=== PATIENT | female | born 1945 | race Caucasian/White ===

== ENCOUNTER 2020-01-01 13:18 | Emergency (ER) | payer MEDICARE, BC ==
[~2020-01-01] VITALS: Ht 162.6 cm; Wt 82.0 kg
[~2020-01-01 13:18] MED LIST: LISI-222 PO; LOP25T PO; MULT-1085 PO
[2020-01-01 13:41] VITALS: BP 144/44
[2020-01-01] MEDS ORDERED: TAM75C PO (14:22)
[2020-01-01] MEDS ORDERED: AZIT-63 PO (14:22)
[2020-01-01] MEDS ORDERED: ALBU8.5H8 IH (14:22)
[2020-01-01] MEDS ORDERED: ONDA4TAB6 PO (14:22)
[2020-01-01] MEDS ORDERED: PRED20TA PO (14:22)
== END 2020-01-01 14:52 | disposition home or self-care (01) ==
LOC: ER 13:19
DX: J40 Bronchitis, not specified as acute or chronic (principal); I50.9 Heart failure, unspecified; I11.0 Hypertensive heart disease with heart failure; M81.0 Age-related osteoporosis without current pathological fracture; Z98.890 Other specified postprocedural states; Z79.2 Long term (current) use of antibiotics; Z79.899 Other long term (current) drug therapy
CPT/HCPCS: 71046; 99283

== ENCOUNTER 2021-05-17 08:01 | Emergency (ER) | payer MEDICARE, BC ==
[~2021-05-17] VITALS: Ht 160 cm; Wt 81.8 kg
[~2021-05-17 08:01] MED LIST changes: +ALBU8.5H17 IH; +ONDA4TAB6 PO
[2021-05-17 08:14] VITALS: BP 203/63
--- NOTE | 2021-05-17 08:40 | NUR ---
dr gaona at bedside.
[2021-05-17] MEDS ORDERED: bacitracin 15gm ointment TP ONE (09:10)
== END 2021-05-17 09:27 | disposition home or self-care (01) ==
LOC: ER 08:02
DX: S50.11XA Contusion of right forearm, initial encounter (principal); S50.811A Abrasion of right forearm, initial encounter; I11.0 Hypertensive heart disease with heart failure; I50.9 Heart failure, unspecified; E21.3 Hyperparathyroidism, unspecified; Z85.9 Personal history of malignant neoplasm, unspecified; Z98.890 Other specified postprocedural states; Z79.899 Other long term (current) drug therapy; W18.30XA Fall on same level, unspecified, initial encounter; Y93.89 Activity, other specified; Y92.89 Other specified places as the place of occurrence of the external cause; Y99.8 Other external cause status
CPT/HCPCS: 73030; 73090; 99284

== ENCOUNTER 2021-12-26 09:12 | Emergency (ER) | payer MEDICARE, BC ==
[~2021-12-26] VITALS: Ht 160 cm; Wt 77.3 kg
[2021-12-26 09:45] VITALS: BP 177/43
== END 2021-12-26 09:52 | disposition home or self-care (01) ==
LOC: ER 09:13
DX: J02.9 Acute pharyngitis, unspecified (principal); R06.02 Shortness of breath; R53.83 Other fatigue; I11.0 Hypertensive heart disease with heart failure; I50.9 Heart failure, unspecified; E21.3 Hyperparathyroidism, unspecified; M81.0 Age-related osteoporosis without current pathological fracture; Z85.9 Personal history of malignant neoplasm, unspecified; Z86.16 Personal history of COVID-19; Z79.899 Other long term (current) drug therapy
CPT/HCPCS: 99281

== ENCOUNTER 2023-12-12 12:38 | Inpatient (IN) | payer MEDICARE, BC ==
[~2023-12-12] VITALS: Ht 158.8 cm; Wt 79.2 kg
[2023-12-12] VITALS (7 sets, daily range): BP systolic 120–169; BP diastolic 57–74; PULSE 68–105; RESP 16–18; TEMP 97.4–97.9; O2SAT 95–97
[~2023-12-12 12:38] MED LIST changes: -ALBU8.5H17 IH; +AMIO200T67 PO; +AMLO5TAB16 PO; +APIX5TAB3 PO; +CARSR60C PO; +CIPR-259 PO; +DULO30CA52 PO; +EZET10TA48 PO; -LISI-222 PO; -LOP25T PO; +LOSA1TAB41 PO; +METO-411 PO; -MULT-1085 PO; +OMEG-79 PO; +OMEP20CA16 PO; -ONDA4TAB6 PO; +SERT25TA PO
[2023-12-12] MEDS ORDERED: ondansetron/PF 4mg/2ml inj IV PRN (14:40)
[2023-12-12] MEDS ORDERED: ondansetron 4mg rapidly disintigrating tab PO PRN (14:40)
[2023-12-12] MEDS ORDERED: HYDROcodone/acetaminophen 10/325mg tab PO PRN (14:40)
[2023-12-12] MEDS ORDERED: mag hydrox/Alum hydrox/simeth 30ml oral suspension PO PRN (14:40)
[2023-12-12] MEDS ORDERED: magnesium 4gm in 100ml NS 100 ML IV PRN (14:40)
[2023-12-12] MEDS ORDERED: morphine 2 MG/ML inj. syringe IV PRN ×2 (14:40)
[2023-12-12] MEDS ORDERED: magnesium hydroxide 30ml (MOM) UD suspension PO PRN (14:40)
[2023-12-12] MEDS ORDERED: potassium Cl 40MEQ/1/2NS 520ml 520 ML IV PRN (14:40)
[2023-12-12] MEDS ORDERED: magnesium 2GM in 50ml NS 50 ML IV PRN (14:40)
[2023-12-12] MEDS ORDERED: bisacodyl 10mg suppository rectal RC PRN (14:40)
[2023-12-12] MEDS ORDERED: magnesium Cl slow-release 64mg tablet PO PRN (14:40)
[2023-12-12] MEDS ORDERED: acetaminophen 325mg tablet PO PRN (14:40)
[2023-12-12 15:13] LABS: BASOPHILS # (AUTO) 0.1 X10'3 (0-0.2); BASOPHILS % (AUTO) 0.7 % (0-1); EOSINOPHILS % (AUTO) 0.1 % (0-6); HEMATOCRIT 27.4 % (35.0-45.0); HEMOGLOBIN 9.6 g/dl (12.0-16.0); LYMPHOCYTES # (AUTO) 0.8 X10'3 (1.1-4.8); LYMPHOCYTES % (AUTO) 6.2 % (21-51); MEAN CORPUSCULAR HEMOGLOBIN 31.9 PG (27.0-31.0); MEAN CORPUSCULAR VOLUME 91.2 FL (78-98); MEAN PLATELET VOLUME 6.1 FL (7.4-10.4); MONOCYTES % (AUTO) 7.8 % (2-12); NEUTROPHILS % (AUTO) 85.2 % (42-75); PLATELET COUNT 293 X10'3 (140-440); RED CELL DISTRIBUTION WIDTH 12.7 % (11.5-14.5); WHITE BLOOD COUNT 12.9 X10'3 (4.5-11.0)
[2023-12-12] MEDS ORDERED: GABA-530 PO (15:21)
[2023-12-12 15:24] LABS: APTT 35 SECONDS (22-32); INR 1.1 INR; PROTHROMBIN TIME 11.3 SECONDS (9.0-12.0)
[2023-12-12 15:25] LABS: ALANINE AMINOTRANSFERASE 15 U/L (12-78); ALBUMIN/GLOBULIN RATIO 0.9 (1.1-1.5); ALKALINE PHOSPHATASE 49 IU/L (46-116); ANION GAP 9 (8-16); ASPARTATE AMINO TRANSFERASE 17 U/L (10-37); BILIRUBIN,TOTAL 0.8 MG/DL (0.1-1.0); BLOOD UREA NITROGEN 6 MG/DL (7-18); BUN/CREATININE RATIO 11.8 (10.0-20.0); CHLORIDE 85 MMOL/L (99-107); CREATININE 0.51 MG/DL (0.40-0.90); GLUCOSE 140 MG/DL (70-104); MAGNESIUM 1.6 MG/DL (1.5-2.4); POTASSIUM 3.5 MMOL/L (3.5-5.1); TOTAL CARBON DIOXIDE 26.3 MMOL/L (24-32); TOTAL PROTEIN 6.4 G/DL (6.4-8.2); eGFR > 90 ML/MIN
[2023-12-12 15:32] LABS: OSMOLALITY 246 MOSM/K (280-300)
[2023-12-12 15:38] LABS: CALCIUM 5.8 MG/DL (8.5-10.1); SODIUM 120 MMOL/L (135-145)
[2023-12-12] MEDS ORDERED: ipratropium/albuterol 3ml nebule NEB PRN (16:30)
[2023-12-12] MEDS: normal saline 1000ml 1,000 ML IV SCH (16:40)
[2023-12-12] MEDS: PERFLUTREN PROTEIN-A MICROSPHR (Optison) 0.22 MG/ML 3ML VIAL IV ONE (18:45)
[2023-12-12] MEDS: K and/or MAG REPLACEMENT MC SCH (20:00)
[2023-12-12] MEDS ORDERED: enoxaparin 40mg/0.4ml syringe SQ SCH (20:00)
[2023-12-12] MEDS: ezetimibe 10mg tablet PO SCH (21:25)
[2023-12-12] MEDS: gabapentin 100mg capsule PO SCH (21:25)
[2023-12-12] MEDS: apixaban 5mg tablet PO SCH (21:25)
[2023-12-12] MEDS: CALCIUM GLUC 1gm/50ml NACL,iso 50 ML IV SCH ×2 (21:26→22:30)
[2023-12-13] VITALS (10 sets, daily range): BP systolic 132–146; BP diastolic 50–82; PULSE 62–88; RESP 16–19; TEMP 97.9–98.4; O2SAT 95–98
[2023-12-13 01:07] LABS: BILIRUBIN,URINE NEGATIVE (Neg); CLARITY,URINE CLEAR (Clear); COLOR,URINE STRAW (Yellow); GLUCOSE, URINE NEGATIVE (Neg); KETONES,URINE NEGATIVE (Neg); LEUKOCYTE ESTERASE ,URINE NEGATIVE (Neg); NITRITES, URINE NEGATIVE (Neg); OCCULT BLOOD,URINE MODERATE (Neg); PROTEIN,URINE NEGATIVE (Neg); UROBILINOGEN,URINE 0.2 E.U/dL (0.2-1.0)
[2023-12-13 01:10] LABS: UA COLLECTION TYPE NON-SPECIFIED
[2023-12-13 01:14] LABS: BACTERIA,URINE NONE SEEN /HPF (Neg); SQUAMOUS EPITHELIAL CELL,UR FEW /LPF (FEW); WBC,URINE 0-4 /HPF (0-4)
[2023-12-13 01:15] LABS: MUCUS STRANDS FEW /LPF (Neg); TRANSITIONAL EPI CELLS,URINE FEW /HPF
[2023-12-13 01:22] LABS: ANION GAP 8 (8-16); BLOOD UREA NITROGEN 6 MG/DL (7-18); BUN/CREATININE RATIO 11.1 (10.0-20.0); CALCIUM 6.6 MG/DL (8.5-10.1); CHLORIDE 87 MMOL/L (99-107); CREATININE 0.54 MG/DL (0.40-0.90); GLUCOSE 118 MG/DL (70-104); POTASSIUM 3.2 MMOL/L (3.5-5.1); SODIUM 124 MMOL/L (135-145); TOTAL CARBON DIOXIDE 28.6 MMOL/L (24-32); eCRCL 68 ML/MIN; eGFR > 90 ML/MIN
[2023-12-13 01:22] LABS: OSMOLALITY UA 161 MOSM/K (50-1400)
[2023-12-13 01:32] LABS: SODIUM,URINE RANDOM 26 MEQ/L
[2023-12-13] MEDS: potassium Cl 20 mEq SR tablet PO PRN (01:38)
[2023-12-13] MEDS: magnesium 2GM in 50ml NS 50 ML IV ONE (02:14)
[2023-12-13] MEDS: acetaminophen 325mg tablet PO PRN (05:37)
[2023-12-13 07:35] LABS: BASOPHILS % (AUTO) 0.1 % (0-1); EOSINOPHILS % (AUTO) 0.4 % (0-6); HEMATOCRIT 27.9 % (35.0-45.0); HEMOGLOBIN 9.6 g/dl (12.0-16.0); LYMPHOCYTES # (AUTO) 0.8 X10'3 (1.1-4.8); MEAN CORPUSCULAR HEMOGLOBIN 31.6 PG (27.0-31.0); MEAN CORPUSCULAR HGB CONC 34.4 g/dL (33.0-36.5); MEAN CORPUSCULAR VOLUME 91.9 FL (78-98); MEAN PLATELET VOLUME 6.5 FL (7.4-10.4); MONOCYTES % (AUTO) 10.8 % (2-12); NEUTROPHILS # (AUTO) 7.8 X10'3 (1.8-7.7); NEUTROPHILS % (AUTO) 80.7 % (42-75); PLATELET COUNT 287 X10'3 (140-440); RED BLOOD COUNT 3.04 X10'6 (4.20-5.60); RED CELL DISTRIBUTION WIDTH 12.5 % (11.5-14.5); WHITE BLOOD COUNT 9.7 X10'3 (4.5-11.0)
[2023-12-13 07:48] LABS: ALANINE AMINOTRANSFERASE 13 U/L (12-78); ALBUMIN 2.8 G/DL (3.4-5.0); ALBUMIN/GLOBULIN RATIO 0.8 (1.1-1.5); ALKALINE PHOSPHATASE 50 IU/L (46-116); ANION GAP 4 (8-16); ASPARTATE AMINO TRANSFERASE 16 U/L (10-37); BILIRUBIN,TOTAL 0.8 MG/DL (0.1-1.0); BLOOD UREA NITROGEN 5 MG/DL (7-18); BUN/CREATININE RATIO 8.9 (10.0-20.0); CALCIUM 6.4 MG/DL (8.5-10.1); CHLORIDE 90 MMOL/L (99-107); CREATININE 0.56 MG/DL (0.40-0.90); GLUCOSE 117 MG/DL (70-104); MAGNESIUM 2.4 MG/DL (1.5-2.4); PHOSPHORUS 2.7 MG/DL (2.3-4.5); POTASSIUM 3.4 MMOL/L (3.5-5.1); SODIUM 128 MMOL/L (135-145); TOTAL CARBON DIOXIDE 34.3 MMOL/L (24-32); TOTAL PROTEIN 6.3 G/DL (6.4-8.2); eCRCL 66 ML/MIN; eGFR > 90 ML/MIN
[2023-12-13] MEDS: metoprolol succinate 25mg (24-HOUR) SR. Tablet PO SCH (09:58)
[2023-12-13] MEDS: HYDROchlorothiazide 12.5mg capsule PO SCH (09:59)
[2023-12-13] MEDS: losartan 50mg tablet PO SCH (09:59)
[2023-12-13] MEDS: sertraline 25mg tablet PO SCH (09:59)
[2023-12-13] MEDS: pantoprazole 40mg Tablet.DR PO SCH (09:59)
[2023-12-13] MEDS: amLODIPine 2.5mg tablet PO SCH (10:00)
[2023-12-13 11:20] LABS: ALBUMIN 2.8 G/DL (3.4-5.0); BLOOD UREA NITROGEN 6 MG/DL (7-18); BUN/CREATININE RATIO 7.8 (10.0-20.0); CALCIUM 6.3 MG/DL (8.5-10.1); CHLORIDE 92 MMOL/L (99-107); CREATININE 0.77 MG/DL (0.40-0.90); GLUCOSE 168 MG/DL (70-104); POTASSIUM 3.5 MMOL/L (3.5-5.1); SODIUM 128 MMOL/L (135-145); eCRCL 48 ML/MIN; eGFR 72 ML/MIN
[2023-12-13 11:40] LABS: ANION GAP 9 (8-16); TOTAL CARBON DIOXIDE 26.8 MMOL/L (24-32)
[2023-12-13] MEDS: HYDROcodone/acetaminophen 5mg/325mg tablet PO PRN (13:10)
[2023-12-13] MEDS: CALCIUM GLUC 1gm/50ml NACL,iso 50 ML IV ONE ×2 (15:47→18:00)
[2023-12-13 19:39] LABS: ALBUMIN 2.7 G/DL (3.4-5.0); ANION GAP 8 (8-16); BLOOD UREA NITROGEN 9 MG/DL (7-18); BUN/CREATININE RATIO 11.5 (10.0-20.0); CALCIUM 6.6 MG/DL (8.5-10.1); CHLORIDE 91 MMOL/L (99-107); CREATININE 0.78 MG/DL (0.40-0.90); GLUCOSE 194 MG/DL (70-104); POTASSIUM 3.5 MMOL/L (3.5-5.1); SODIUM 126 MMOL/L (135-145); TOTAL CARBON DIOXIDE 27.2 MMOL/L (24-32); eCRCL 47 ML/MIN; eGFR 71 ML/MIN
[2023-12-14 05:09] LABS: BASOPHILS % (AUTO) 0.3 % (0-1); EOSINOPHILS # (AUTO) 0.2 X10'3 (0-0.9); EOSINOPHILS % (AUTO) 2.2 % (0-6); HEMATOCRIT 23.7 % (35.0-45.0); HEMOGLOBIN 8.2 g/dl (12.0-16.0); LYMPHOCYTES # (AUTO) 0.8 X10'3 (1.1-4.8); LYMPHOCYTES % (AUTO) 9.3 % (21-51); MEAN CORPUSCULAR HEMOGLOBIN 32.4 PG (27.0-31.0); MEAN CORPUSCULAR HGB CONC 34.8 g/dL (33.0-36.5); MEAN CORPUSCULAR VOLUME 93.1 FL (78-98); MEAN PLATELET VOLUME 6.3 FL (7.4-10.4); MONOCYTES % (AUTO) 11.5 % (2-12); NEUTROPHILS # (AUTO) 6.9 X10'3 (1.8-7.7); NEUTROPHILS % (AUTO) 76.7 % (42-75); PLATELET COUNT 280 X10'3 (140-440); RED BLOOD COUNT 2.54 X10'6 (4.20-5.60); WHITE BLOOD COUNT 9.1 X10'3 (4.5-11.0)
[2023-12-14 05:24] LABS: ALBUMIN 2.4 G/DL (3.4-5.0); ANION GAP 7 (8-16); BLOOD UREA NITROGEN 9 MG/DL (7-18); BUN/CREATININE RATIO 14.8 (10.0-20.0); CALCIUM 6.3 MG/DL (8.5-10.1); CHLORIDE 99 MMOL/L (99-107); CREATININE 0.61 MG/DL (0.40-0.90); GLUCOSE 112 MG/DL (70-104); MAGNESIUM 1.7 MG/DL (1.5-2.4); PHOSPHORUS 2.9 MG/DL (2.3-4.5); SODIUM 136 MMOL/L (135-145); TOTAL CARBON DIOXIDE 30.2 MMOL/L (24-32); eCRCL 61 ML/MIN; eGFR > 90 ML/MIN
[2023-12-14] MEDS: potassium Cl 20 mEq SR tablet PO PRN (05:44)
[2023-12-14 06:00] VITALS: BP 155/55; PULSE 73; RESP 18; TEMP 97.5; O2SAT 96
[2023-12-14 08:31] VITALS: PULSE 88; RESP 16; O2SAT 96
[2023-12-14 10:00] VITALS: BP 140/44; PULSE 65; RESP 14; TEMP 98.2; O2SAT 96
[2023-12-14] MEDS: calcium chloride inj. 1,000 MG in NS 100ml IV soln (110ml) IV ONE (10:11)
[2023-12-14] MEDS: potassium Cl 20 mEq SR tablet PO STA (10:52)
[2023-12-14] MEDS ORDERED: LOSA50TA64 PO (12:48)
[2023-12-14] MEDS ORDERED: AMLO5TAB16 PO (12:49)
[2023-12-14] MEDS ORDERED: POTA-208 PO (12:50)
[2023-12-14 13:09] LABS: ALBUMIN 2.6 G/DL (3.4-5.0); ANION GAP 6 (8-16); BLOOD UREA NITROGEN 8 MG/DL (7-18); BUN/CREATININE RATIO 14.8 (10.0-20.0); CHLORIDE 97 MMOL/L (99-107); CREATININE 0.54 MG/DL (0.40-0.90); GLUCOSE 96 MG/DL (70-104); POTASSIUM 3.9 MMOL/L (3.5-5.1); SODIUM 133 MMOL/L (135-145); TOTAL CARBON DIOXIDE 29.7 MMOL/L (24-32); eCRCL 68 ML/MIN; eGFR > 90 ML/MIN
[2023-12-14 13:15] LABS: CALCIUM 7.8 MG/DL (8.5-10.1)
[2023-12-14] MEDS ORDERED: SODI1TAB2 PO (17:28)
[2023-12-14] MEDS ORDERED: CALC-723 PO (23:44)
== END 2023-12-14 16:10 | disposition home health service (06) | DRG 640 ==
LOC: ORTHO 4S 12:40
PROVIDERS: ADMIT Orthopaedic Surgery; ATTEND Orthopaedic Surgery
DX: E87.1 Hypo-osmolality and hyponatremia (principal); E43 Unspecified severe protein-calorie malnutrition; Z96.652 Presence of left artificial knee joint; E66.9 Obesity, unspecified; E87.6 Hypokalemia; E83.51 Hypocalcemia; D64.9 Anemia, unspecified; E86.1 Hypovolemia; I11.0 Hypertensive heart disease with heart failure; I50.9 Heart failure, unspecified; I35.0 Nonrheumatic aortic (valve) stenosis; R25.2 Cramp and spasm; E78.5 Hyperlipidemia, unspecified; I48.91 Unspecified atrial fibrillation; Z79.899 Other long term (current) drug therapy; Z87.891 Personal history of nicotine dependence; Z68.31 Body mass index [BMI] 31.0-31.9, adult
CPT/HCPCS: 36415; 71045; 80048; 80053; 81001; 83735; 83930; 83935; 84100; 84300; 85025; 85610; 85730; 87081; 93005; 93306; 94760; 97116; 97161; 97530; 99285; G0378; J0610; J3475; J3490; J7030

== ENCOUNTER 2023-12-24 11:56 | Day surgery (SDC) | payer MEDICARE, BC ==
[2023-12-21 10:52] LABS: BASOPHILS # (AUTO) 0.1 X10'3 (0-0.2); EOSINOPHILS # (AUTO) 0.4 X10'3 (0-0.9); HEMOGLOBIN 8.8 g/dl (12.0-16.0); LYMPHOCYTES # (AUTO) 1.2 X10'3 (1.1-4.8); WHITE BLOOD COUNT 10.5 X10'3 (4.5-11.0)
[2023-12-21 10:53] LABS: BASOPHILS % (AUTO) 0.6 % (0-1); HEMATOCRIT 26.2 % (35.0-45.0); LYMPHOCYTES % (AUTO) 11.2 % (21-51); MEAN CORPUSCULAR HEMOGLOBIN 31.3 PG (27.0-31.0); MEAN CORPUSCULAR HGB CONC 33.6 g/dL (33.0-36.5); MEAN CORPUSCULAR VOLUME 93.1 FL (78-98); MEAN PLATELET VOLUME 5.5 FL (7.4-10.4); MONOCYTES % (AUTO) 9.4 % (2-12); NEUTROPHILS # (AUTO) 7.8 X10'3 (1.8-7.7); NEUTROPHILS % (AUTO) 74.8 % (42-75); PLATELET COUNT 584 X10'3 (140-440); RED BLOOD COUNT 2.82 X10'6 (4.20-5.60); RED CELL DISTRIBUTION WIDTH 13.3 % (11.5-14.5)
[2023-12-21 10:57] LABS: INR 1.1 INR
[2023-12-21 11:03] LABS: APTT 39 SECONDS (22-32); PROTHROMBIN TIME 11.7 SECONDS (9.0-12.0)
[2023-12-21 11:13] LABS: ALBUMIN 2.7 G/DL (3.4-5.0); ANION GAP 8 (8-16); BLOOD UREA NITROGEN 10 MG/DL (7-18); CALCIUM 6.3 MG/DL (8.5-10.1); CHLORIDE 98 MMOL/L (99-107); CHOL/HDL RATIO 3.5 (0.00-4.99); CHOLESTEROL 152 MG/DL (0-200); CREATININE 0.77 MG/DL (0.40-0.90); GLUCOSE 104 MG/DL (70-104); HDL CHOLESTEROL 44 MG/DL (35-60); LDL CHOLESTEROL 86 MG/DL (50-100); POTASSIUM 4.1 MMOL/L (3.5-5.1); SODIUM 135 MMOL/L (135-145); TOTAL CARBON DIOXIDE 28.8 MMOL/L (24-32); TRIGLYCERIDES 83 MG/DL (20-135); eGFR 72 ML/MIN
[~2023-12-24] VITALS: Ht 158.8 cm; Wt 79.0 kg
[2023-12-24] VITALS (10 sets, daily range): BP systolic 109–145; BP diastolic 39–65; PULSE 68–73; RESP 12–20; TEMP 97.4; O2SAT 94–98
[~2023-12-24 11:56] MED LIST changes: -AMIO200T67 PO; +CALC-723 PO; -CARSR60C PO; -CIPR-259 PO; -DULO30CA52 PO; +GABA-530 PO; -LOSA1TAB41 PO; +LOSA50TA64 PO; -OMEG-79 PO; +POTA-208 PO; +SODI1TAB2 PO
[2023-12-24] MEDS ORDERED: DENO60DI SUBCUT (12:22)
[2023-12-24] MEDS ORDERED: APIX5TAB3 PO (12:24)
[2023-12-24] MEDS ORDERED: AMLO2.5T5 PO (12:25)
[2023-12-24] MEDS ORDERED: LOSA100T58 PO (12:26)
[2023-12-24] MEDS: LORazepam 0.5 MG tablet PO PRN (13:00)
[2023-12-24] MEDS: diphenhydrAMINE 25mg capsule PO PRN (13:00)
[2023-12-24] MEDS: normal saline 1,000 ML IV SCH (13:00)
[2023-12-24] MEDS ORDERED: LIDOcaine 1% (10mg/ml) 2ml vial ONE (13:30)
[2023-12-24] MEDS ORDERED: iohexol 350MG/ML 100ml bottle IV ONE (13:31)
[2023-12-24] MEDS ORDERED: heparin 1,000unit/ml 10ml vial 10 ML ONE (13:31)
[2023-12-24] MEDS ORDERED: midazolam 1 mg/ML 2ml injection ONE (13:31)
[2023-12-24] MEDS ORDERED: verapamil 2.5 mg/ml inj IV ONE (13:31)
[2023-12-24] MEDS ORDERED: fentaNYL/PF 50MCG/1 ML 2ML syringe ONE (13:31)
[2023-12-24] MEDS ORDERED: nitroGLYCERIN 500mcg/5mL D5W 5 ML IV ONE (13:32)
[2023-12-24] MEDS ORDERED: LIDOcaine 1% 30ml preserv. free vial ONE (14:25)
[2023-12-24 14:57] LABS: ISTAT HGB ART 8.5 g/dl (12.0-16.0); ISTAT Hct ART 25 %PCV (35-45); ISTAT O2 SATURATION ARTERIAL 93 % (95-98); ISTAT SOURCE ART
[2023-12-25 06:46] LABS: ISTAT HGB MIX 8.5 g/dl (12.0-16.0); ISTAT Hct MIX 25 %PCV (35-45); ISTAT O2 SATURATION MIX VENOUS 61 % (60-80); ISTAT SOURCE VEN
== END 2023-12-24 17:05 | disposition home or self-care (01) ==
LOC: SSTAY O 11:56
PROVIDERS: ATTEND Student in an Organized Health Care Education/Training Program
DX: I08.0 Rheumatic disorders of both mitral and aortic valves (principal); E78.5 Hyperlipidemia, unspecified; E11.9 Type 2 diabetes mellitus without complications; M19.90 Unspecified osteoarthritis, unspecified site; I48.0 Paroxysmal atrial fibrillation; I11.0 Hypertensive heart disease with heart failure; I50.9 Heart failure, unspecified; I27.20 Pulmonary hypertension, unspecified; E66.9 Obesity, unspecified; Z68.31 Body mass index [BMI] 31.0-31.9, adult; Z85.828 Personal history of other malignant neoplasm of skin; Z88.8 Allergy status to other drugs, medicaments and biological substances; Z88.5 Allergy status to narcotic agent; Z79.899 Other long term (current) drug therapy; Z79.01 Long term (current) use of anticoagulants
CPT/HCPCS: 36415; 80048; 80061; 82803; 85014; 85025; 85610; 85730; 93005; 93456; 99152; 99153; J1644; J2250; J3010; J3490; J7030; Q0163; Q9967; A6258; A6402; C1751; C1894

== ENCOUNTER 2024-01-26 17:47 | Inpatient (IN) | payer MEDICARE, BC ==
[~2024-01-26] VITALS: Ht 160 cm; Wt 74.5 kg
[~2024-01-26 17:47] MED LIST changes: +AMLO2.5T5 PO; -AMLO5TAB16 PO; -CALC-723 PO; +DENO60DI SUBCUT; +LOSA100T58 PO; -LOSA50TA64 PO; -POTA-208 PO; -SODI1TAB2 PO
[2024-01-26 18:22] LABS: BASOPHILS % (AUTO) 0.2 % (0-1); EOSINOPHILS % (AUTO) 0 % (0-6); HEMATOCRIT 32.5 % (35.0-45.0); HEMOGLOBIN 10.3 g/dl (12.0-16.0); LYMPHOCYTES # (AUTO) 0.2 X10'3 (1.1-4.8); LYMPHOCYTES % (AUTO) 1.4 % (21-51); MEAN CORPUSCULAR HEMOGLOBIN 27.4 PG (27.0-31.0); MEAN CORPUSCULAR HGB CONC 31.8 g/dL (33.0-36.5); MEAN CORPUSCULAR VOLUME 86.1 FL (78-98); MONOCYTES # (AUTO) 1.1 X10'3 (0-0.9); MONOCYTES % (AUTO) 7.4 % (2-12); PLATELET COUNT 409 X10'3 (140-440); RED BLOOD COUNT 3.77 X10'6 (4.20-5.60); RED CELL DISTRIBUTION WIDTH 15.2 % (11.5-14.5); WHITE BLOOD COUNT 14.3 X10'3 (4.5-11.0)
[2024-01-26 18:26] LABS: ALBUMIN 2.6 G/DL (3.4-5.0); ANION GAP 8 (8-16); BLOOD UREA NITROGEN 12 MG/DL (7-18); BUN/CREATININE RATIO 14.1 (10.0-20.0); CALCIUM 6.3 MG/DL (8.5-10.1); CHLORIDE 95 MMOL/L (99-107); CREATININE 0.85 MG/DL (0.40-0.90); GLUCOSE 144 MG/DL (70-104); POTASSIUM 3.5 MMOL/L (3.5-5.1); SODIUM 131 MMOL/L (135-145); TOTAL CARBON DIOXIDE 27.8 MMOL/L (24-32); eCRCL 44 ML/MIN; eGFR 65 ML/MIN
[2024-01-26] MEDS: acetaminophen 325mg tablet PO ONE (18:32)
[2024-01-26] MEDS: ondansetron/PF 4mg/2ml inj IV ONE (18:37)
[2024-01-26] MEDS: normal saline 1000ML IV soln IV ONE (18:37)
[2024-01-26] MEDS: dexamethasone sod phosphate 10mg/ml inj IV STA (18:37)
[2024-01-26 19:05] LABS: BILIRUBIN,URINE NEGATIVE (Neg); COLOR,URINE YELLOW (Yellow); GLUCOSE, URINE NEGATIVE (Neg); KETONES,URINE NEGATIVE (Neg); LEUKOCYTE ESTERASE ,URINE LARGE (Neg); NITRITES, URINE POSITIVE (Neg); OCCULT BLOOD,URINE LARGE (Neg); PROTEIN,URINE 30 mg/dl (Neg); UROBILINOGEN,URINE 0.2 E.U/dL (0.2-1.0)
[2024-01-26 19:06] LABS: CLARITY,URINE SLIGHTLY CLOUDY (Clear); UA COLLECTION TYPE VOIDED
[2024-01-26 19:16] LABS: BACTERIA,URINE 3+ /HPF (Neg); WBC,URINE TNTC /HPF (0-4)
[2024-01-26 19:17] LABS: RBC,URINE 20-50 /HPF (0-2)
[2024-01-26 19:18] LABS: MUCUS STRANDS NONE SEEN /LPF (Neg); SQUAMOUS EPITHELIAL CELL,UR FEW /LPF (FEW); WBC CLUMPS,URINE MODERATE /HPF (NEGATIVE)
[2024-01-26] MEDS ORDERED: acetaminophen 325mg tablet PO PRN (19:30)
[2024-01-26] MEDS ORDERED: morphine 2 MG/ML inj. syringe IV PRN ×2 (19:30)
[2024-01-26] MEDS ORDERED: magnesium hydroxide 30ml (MOM) UD suspension PO PRN (19:30)
[2024-01-26] MEDS ORDERED: mag hydrox/Alum hydrox/simeth 30ml oral suspension PO PRN (19:30)
[2024-01-26] MEDS: docusate sod 100mg capsule PO SCH (20:00)
[2024-01-26] MEDS: CefTRIAXone/D5W-Rocephin 1gm 50 ML IV SCH (21:03)
[2024-01-27 03:34] LABS: BASOPHILS % (AUTO) 0.1 % (0-1); EOSINOPHILS % (AUTO) 0 % (0-6); HEMATOCRIT 30.6 % (35.0-45.0); HEMOGLOBIN 9.8 g/dl (12.0-16.0); LYMPHOCYTES # (AUTO) 0.5 X10'3 (1.1-4.8); LYMPHOCYTES % (AUTO) 2.5 % (21-51); MEAN CORPUSCULAR HEMOGLOBIN 27.6 PG (27.0-31.0); MEAN CORPUSCULAR HGB CONC 31.9 g/dL (33.0-36.5); MEAN CORPUSCULAR VOLUME 86.5 FL (78-98); MEAN PLATELET VOLUME 6.6 FL (7.4-10.4); MONOCYTES # (AUTO) 0.4 X10'3 (0-0.9); MONOCYTES % (AUTO) 2.3 % (2-12); NEUTROPHILS # (AUTO) 17.2 X10'3 (1.8-7.7); NEUTROPHILS % (AUTO) 95.1 % (42-75); PLATELET COUNT 403 X10'3 (140-440); RED BLOOD COUNT 3.53 X10'6 (4.20-5.60); RED CELL DISTRIBUTION WIDTH 15.2 % (11.5-14.5)
[2024-01-27 03:38] LABS: ALBUMIN 2.7 G/DL (3.4-5.0); ANION GAP 9 (8-16); BLOOD UREA NITROGEN 14 MG/DL (7-18); BUN/CREATININE RATIO 15.6 (10.0-20.0); CALCIUM 6.4 MG/DL (8.5-10.1); CHLORIDE 97 MMOL/L (99-107); GLUCOSE 170 MG/DL (70-104); POTASSIUM 3.8 MMOL/L (3.5-5.1); SODIUM 133 MMOL/L (135-145); eCRCL 42 ML/MIN; eGFR 60 ML/MIN
[2024-01-27] MEDS: acetaminophen 325mg tablet PO PRN (04:57)
[2024-01-27 07:50] VITALS: RESP 16; O2SAT 100
[2024-01-27 10:00] VITALS: BP 128/44; PULSE 85; RESP 16; TEMP 98.2; O2SAT 100
[2024-01-27] MEDS: piperacillin/tazo 4.5gm/100ml 100 ML IV SCH (12:00)
[2024-01-27 18:00] VITALS: BP 150/58; PULSE 79; RESP 18; TEMP 98.2; O2SAT 100
[2024-01-27] MEDS: apixaban 5mg tablet PO SCH (19:23)
[2024-01-27] MEDS: gabapentin 100mg capsule PO SCH (19:23)
[2024-01-27] MEDS: ezetimibe 10mg tablet PO SCH (20:16)
[2024-01-27 22:00] VITALS: BP 162/63; PULSE 84; RESP 16; TEMP 97.9; O2SAT 99
[2024-01-27] MEDS: ondansetron/PF 4mg/2ml inj IV PRN (22:37)
[2024-01-27] MEDS: temazepam 15mg capsule PO PRN (23:37)
[2024-01-28 05:00] VITALS: BP 167/62; PULSE 92; RESP 15; TEMP 98.1; O2SAT 100
[2024-01-28 06:46] LABS: ALBUMIN 2.4 G/DL (3.4-5.0); ANION GAP 6 (8-16); BLOOD UREA NITROGEN 13 MG/DL (7-18); BUN/CREATININE RATIO 14.6 (10.0-20.0); CALCIUM 6.6 MG/DL (8.5-10.1); CHLORIDE 99 MMOL/L (99-107); CREATININE 0.89 MG/DL (0.40-0.90); GLUCOSE 116 MG/DL (70-104); POTASSIUM 3.3 MMOL/L (3.5-5.1); SODIUM 133 MMOL/L (135-145); TOTAL CARBON DIOXIDE 27.8 MMOL/L (24-32); eCRCL 42 ML/MIN; eGFR 61 ML/MIN
[2024-01-28 06:58] LABS: BASOPHILS % (AUTO) 0.1 % (0-1); EOSINOPHILS % (AUTO) 0.1 % (0-6); HEMATOCRIT 27.5 % (35.0-45.0); HEMOGLOBIN 8.8 g/dl (12.0-16.0); LYMPHOCYTES # (AUTO) 0.9 X10'3 (1.1-4.8); LYMPHOCYTES % (AUTO) 6.1 % (21-51); MEAN CORPUSCULAR HEMOGLOBIN 27.5 PG (27.0-31.0); MEAN CORPUSCULAR HGB CONC 32.2 g/dL (33.0-36.5); MEAN CORPUSCULAR VOLUME 85.4 FL (78-98); MEAN PLATELET VOLUME 6.2 FL (7.4-10.4); MONOCYTES # (AUTO) 1.1 X10'3 (0-0.9); NEUTROPHILS # (AUTO) 13.4 X10'3 (1.8-7.7); NEUTROPHILS % (AUTO) 86.7 % (42-75); PLATELET COUNT 408 X10'3 (140-440); RED BLOOD COUNT 3.22 X10'6 (4.20-5.60); RED CELL DISTRIBUTION WIDTH 15.3 % (11.5-14.5); WHITE BLOOD COUNT 15.5 X10'3 (4.5-11.0)
[2024-01-28] MEDS: losartan 50mg tablet PO SCH (07:42)
[2024-01-28] MEDS: sertraline 50mg tablet PO SCH (07:43)
[2024-01-28] MEDS: amLODIPine 5mg tablet PO SCH (07:43)
[2024-01-28] MEDS: pantoprazole 40mg Tablet.DR PO SCH (07:43)
[2024-01-28] MEDS: metoprolol succinate 25mg (24-HOUR) SR. Tablet PO SCH (07:44)
[2024-01-28 08:00] VITALS: BP 167/61; PULSE 90; RESP 16; RESP 18; O2SAT 98
[2024-01-28 10:00] VITALS: BP 120/51; PULSE 83; RESP 18; TEMP 97.5; O2SAT 98
[2024-01-28] MEDS ORDERED: magnesium Cl slow-release 64mg tablet PO PRN (10:15)
[2024-01-28] MEDS ORDERED: magnesium 4gm in 100ml NS 100 ML IV PRN (10:15)
[2024-01-28] MEDS ORDERED: potassium Cl 40MEQ/1/2NS 520ml 520 ML IV PRN (10:15)
[2024-01-28] MEDS ORDERED: magnesium 2GM in 50ml NS 50 ML IV PRN (10:15)
[2024-01-28] MEDS: potassium Cl 20 mEq SR tablet PO PRN (10:30)
[2024-01-28] MEDS: levoFLOXACIN 750MG TABLET PO SCH (12:28)
[2024-01-28 18:00] VITALS: BP 142/52; PULSE 78; RESP 16; TEMP 97.3; O2SAT 98
[2024-01-28 20:00] VITALS: RESP 16; O2SAT 98
[2024-01-28] MEDS: K and/or MAG REPLACEMENT MC SCH (20:04)
[2024-01-28 20:41] LABS: PRO BRAIN NATRIURETIC PEPTIDE 2177 PG/ML (0-450)
[2024-01-28 22:00] VITALS: BP 145/69; PULSE 82; RESP 15; TEMP 97.3; O2SAT 96
[2024-01-29 01:30] VITALS: BP 197/77; PULSE 79
[2024-01-29 01:46] VITALS: BP 207/77; PULSE 77
[2024-01-29 02:46] VITALS: BP 195/75; PULSE 77
[2024-01-29 06:00] VITALS: BP 138/55; PULSE 89; RESP 15; TEMP 98.3; O2SAT 93
[2024-01-29 07:30] VITALS: RESP 18; O2SAT 98
[2024-01-29 07:45] LABS: BASOPHILS # (AUTO) 0.1 X10'3 (0-0.2); BASOPHILS % (AUTO) 0.5 % (0-1); EOSINOPHILS % (AUTO) 0.4 % (0-6); HEMOGLOBIN 9.3 g/dl (12.0-16.0); LYMPHOCYTES % (AUTO) 9.2 % (21-51); MEAN CORPUSCULAR HEMOGLOBIN 27.4 PG (27.0-31.0); MEAN CORPUSCULAR VOLUME 85.4 FL (78-98); MONOCYTES # (AUTO) 1.3 X10'3 (0-0.9); MONOCYTES % (AUTO) 11.8 % (2-12); NEUTROPHILS # (AUTO) 8.3 X10'3 (1.8-7.7); NEUTROPHILS % (AUTO) 78.1 % (42-75); PLATELET COUNT 444 X10'3 (140-440); RED BLOOD COUNT 3.39 X10'6 (4.20-5.60); RED CELL DISTRIBUTION WIDTH 15.3 % (11.5-14.5); WHITE BLOOD COUNT 10.7 X10'3 (4.5-11.0)
[2024-01-29 07:48] LABS: BASOPHILS % (AUTO) 0.4 % (0-1); EOSINOPHILS % (AUTO) 0.4 % (0-6); HEMATOCRIT 28.8 % (35.0-45.0); HEMOGLOBIN 9.3 g/dl (12.0-16.0); LYMPHOCYTES # (AUTO) 1.1 X10'3 (1.1-4.8); LYMPHOCYTES % (AUTO) 10.8 % (21-51); MEAN CORPUSCULAR HEMOGLOBIN 27.5 PG (27.0-31.0); MEAN CORPUSCULAR HGB CONC 32.2 g/dL (33.0-36.5); MEAN CORPUSCULAR VOLUME 85.5 FL (78-98); MEAN PLATELET VOLUME 5.9 FL (7.4-10.4); MONOCYTES # (AUTO) 1.2 X10'3 (0-0.9); MONOCYTES % (AUTO) 11.5 % (2-12); NEUTROPHILS % (AUTO) 76.9 % (42-75); PLATELET COUNT 472 X10'3 (140-440); RED BLOOD COUNT 3.36 X10'6 (4.20-5.60); RED CELL DISTRIBUTION WIDTH 15.3 % (11.5-14.5); WHITE BLOOD COUNT 10.4 X10'3 (4.5-11.0)
[2024-01-29 08:10] LABS: ALBUMIN 2.5 G/DL (3.4-5.0); ANION GAP 4 (8-16); BLOOD UREA NITROGEN 10 MG/DL (7-18); BUN/CREATININE RATIO 13.3 (10.0-20.0); CALCIUM 6.8 MG/DL (8.5-10.1); CHLORIDE 98 MMOL/L (99-107); CREATININE 0.75 MG/DL (0.40-0.90); GLUCOSE 100 MG/DL (70-104); POTASSIUM 4.3 MMOL/L (3.5-5.1); SODIUM 131 MMOL/L (135-145); TOTAL CARBON DIOXIDE 28.7 MMOL/L (24-32); eCRCL 50 ML/MIN; eGFR 75 ML/MIN
[2024-01-29] MEDS: furosemide 20 MG/2 ML vial IV ONE (08:26)
[2024-01-29 10:00] VITALS: BP 129/66; PULSE 79; RESP 12; TEMP 96.8; O2SAT 96
[2024-01-29] MEDS ORDERED: LEVO-65 PO (10:58)
[2024-01-29] MEDS ORDERED: FURO-150 PO (10:58)
[2024-01-29] MEDS ORDERED: LEVO750T68 PO (11:45)
== END 2024-01-29 13:50 | disposition home health service (06) | DRG 871 ==
LOC: ER 17:48 → ED HOLD 19:34 → UNDOADMIN 20:37 → ED HOLD 20:37 → ORTHO 4S 01-27 08:06
PROVIDERS: ADMIT Internal Medicine; ATTEND Internal Medicine
DX: A41.51 Sepsis due to Escherichia coli [E. coli] (principal); J96.01 Acute respiratory failure with hypoxia; N10 Acute pyelonephritis; E87.1 Hypo-osmolality and hyponatremia; I50.30 Unspecified diastolic (congestive) heart failure; I11.0 Hypertensive heart disease with heart failure; M81.0 Age-related osteoporosis without current pathological fracture; I35.0 Nonrheumatic aortic (valve) stenosis; Z20.822 Contact with and (suspected) exposure to COVID-19; I27.81 Cor pulmonale (chronic); D64.9 Anemia, unspecified; E87.6 Hypokalemia; R65.20 Severe sepsis without septic shock; F32.A Depression, unspecified; J44.9 Chronic obstructive pulmonary disease, unspecified; Z96.653 Presence of artificial knee joint, bilateral; Z88.8 Allergy status to other drugs, medicaments and biological substances; Z98.891 History of uterine scar from previous surgery; Z91.048 Other nonmedicinal substance allergy status; Z79.01 Long term (current) use of anticoagulants; Z79.899 Other long term (current) drug therapy; Z86.73 Personal history of transient ischemic attack (TIA), and cerebral infarction without residual deficits; Z83.3 Family history of diabetes mellitus; B96.20 Unspecified Escherichia coli [E. coli] as the cause of diseases classified elsewhere
CPT/HCPCS: 36415; 71045; 74150; 80048; 81001; 83036; 83605; 83735; 83880; 84132; 84145; 85025; 87040; 87077; 87081; 87088; 87186; 87502; 87503; 87811; 93005; 99285; A4615; G0378; J0696; J1100; J1940; J2405; J2543; J7030; J7040

== ENCOUNTER 2024-01-31 10:27 | Outpatient (CLI) | payer MEDICARE, BC ==
[~2024-01-31 10:27] MED LIST changes: +FURO-150 PO; +LEVO-65 PO; +LEVO750T68 PO; +protamine sulfate 10mg/ml inj. ONE
[2024-01-31 11:13] LABS: BASOPHILS # (AUTO) 0.1 X10'3 (0-0.2); EOSINOPHILS # (AUTO) 0.1 X10'3 (0-0.9); MEAN PLATELET VOLUME 6.2 FL (7.4-10.4)
[2024-01-31 11:14] LABS: BASOPHILS % (AUTO) 0.7 % (0-1); EOSINOPHILS % (AUTO) 1.4 % (0-6); LYMPHOCYTES # (AUTO) 1.3 X10'3 (1.1-4.8); LYMPHOCYTES % (AUTO) 12.2 % (21-51); MEAN CORPUSCULAR HEMOGLOBIN 28.4 PG (27.0-31.0); MEAN CORPUSCULAR HGB CONC 33.2 g/dL (33.0-36.5); MEAN CORPUSCULAR VOLUME 85.5 FL (78-98); MONOCYTES # (AUTO) 0.8 X10'3 (0-0.9); MONOCYTES % (AUTO) 7.7 % (2-12); PLATELET COUNT 631 X10'3 (140-440); RED BLOOD COUNT 3.51 X10'6 (4.20-5.60); RED CELL DISTRIBUTION WIDTH 15.9 % (11.5-14.5); WHITE BLOOD COUNT 10.3 X10'3 (4.5-11.0)
[2024-01-31 11:19] LABS: APTT 31 SECONDS (22-32); INR 1.1 INR; PROTHROMBIN TIME 11.9 SECONDS (9.0-12.0)
[2024-01-31 11:51] LABS: ALANINE AMINOTRANSFERASE 31 U/L (12-78); ALBUMIN 2.8 G/DL (3.4-5.0); ALBUMIN/GLOBULIN RATIO 0.6 (1.1-1.5); ALKALINE PHOSPHATASE 53 IU/L (46-116); ANION GAP 11 (8-16); ASPARTATE AMINO TRANSFERASE 25 U/L (10-37); BILIRUBIN,TOTAL 0.3 MG/DL (0.1-1.0); BLOOD UREA NITROGEN 18 MG/DL (7-18); BUN/CREATININE RATIO 16.8 (10.0-20.0); CALCIUM 7.4 MG/DL (8.5-10.1); CHLORIDE 95 MMOL/L (99-107); CREATININE 1.07 MG/DL (0.40-0.90); GLUCOSE 82 MG/DL (70-104); POTASSIUM 4.5 MMOL/L (3.5-5.1); PRO BRAIN NATRIURETIC PEPTIDE 4539 PG/ML (0-450); SODIUM 135 MMOL/L (135-145); TOTAL CARBON DIOXIDE 29.2 MMOL/L (24-32); TOTAL PROTEIN 7.5 G/DL (6.4-8.2); eGFR 49 ML/MIN
[2024-01-31] MEDS ORDERED: IODIXANOL 320 MG/ML INFUS..BTL 100ML IV ONE (13:12)
== END 2024-01-31 23:59 | disposition home or self-care (01) ==
LOC: RAD 10:27
PROVIDERS: ATTEND Internal Medicine Cardiovascular Disease
DX: I34.81 Nonrheumatic mitral (valve) annulus calcification (principal); I35.0 Nonrheumatic aortic (valve) stenosis; R06.02 Shortness of breath; I65.29 Occlusion and stenosis of unspecified carotid artery; I70.0 Atherosclerosis of aorta; R91.8 Other nonspecific abnormal finding of lung field; J98.4 Other disorders of lung; J98.11 Atelectasis; K82.8 Other specified diseases of gallbladder; M47.816 Spondylosis without myelopathy or radiculopathy, lumbar region; M43.16 Spondylolisthesis, lumbar region; N32.89 Other specified disorders of bladder; Z90.710 Acquired absence of both cervix and uterus
CPT/HCPCS: 71046; 71275; 74174; 75572; 80053; 83880; 85025; 85610; 85730; J2720; J3490; Q9967